=== PATIENT | female | born 1950 ===

== ENCOUNTER 2023-03-19 07:54 | Emergency (ER) | payer MEDICARE, OTHER ==
[2023-03-19] MEDS ORDERED: Ondansetron 4 MG Tab.DIS PO ONE (08:26)
[2023-03-19] MEDS ORDERED: Meclizine 25 MG Tab PO ONE (08:27)
[2023-03-19 09:40] LABS: BASOPHILS ABSOLUTE AUTO 0.1 K/mm3 (0.0-0.2); BASOPHILS PERCENT AUTO 0.8 % (0.0-1.0); EOSINOPHILS ABSOLUTE AUTO 0.1 K/mm3 (0.0-0.4); EOSINOPHILS PERCENT AUTO 1.7 % (0.0-6.0); HEMATOCRIT 37.9 % (37.0-47.0); HEMOGLOBIN 12.1 gm/dl (12.0-16.0); IMMATURE GRAN ABSOLUTE AUTO 0.02 K/mm3 (0.00-0.05); IMMATURE GRAN PERCENT AUTO 0.3 % (0.0-0.4); LYMPHOCYTES ABSOLUTE AUTO 1.2 K/mm3 (1.0-4.8); LYMPHOCYTES PERCENT AUTO 15.9 % (24.0-44.0); MEAN CORPUSCULAR HEMOGLOBIN 28.9 pg (28.0-32.0); MEAN CORPUSCULAR HGB CONC 31.9 g/dl (32.0-36.0); MEAN CORPUSCULAR VOLUME 90.5 fl (83.0-99.0); MEAN PLATELET VOLUME 8.5 fl (9.4-12.3); MONOCYTES ABSOLUTE AUTO 0.6 K/mm3 (0.0-0.8); MONOCYTES PERCENT AUTO 7.7 % (0.0-8.0); NEUTROPHILS ABSOLUTE AUTO 5.5 K/mm3 (1.8-7.7); NEUTROPHILS PERCENT AUTO 73.6 % (41.0-71.0); PLATELET COUNT,PLT 214 K/mm3 (150-400); RED BLOOD CELL COUNT 4.19 M/mm3 (4.10-5.30); WHITE BLOOD CELL COUNT,WBC 7.49 K/mm3 (3.9-11.3)
[2023-03-19 10:06] LABS: A/G RATIO 0.7 (1-2); ALBUMIN 3.5 g/dl (3.4-5.0); ANION GAP 13.2 (5-15); BILIRUBIN TOTAL 0.3 mg/dL (0.2-1.0); BUN/CREATININE RATIO 38.8 (14-18); CALCIUM 8.8 mg/dL (8.5-10.1); CREATININE 0.8 mg/dL (0.55-1.02); EST CRCL DRUG DOSING (CG) 51.81 mL/min; POTASSIUM,K 4.2 mEq/L (3.5-5.1); PROTEIN TOTAL,TP 8.4 g/dl (6.4-8.2)
[2023-03-19 10:47] VITALS: BP 171/71; PULSE 88
== END 2023-03-19 11:00 | disposition home or self-care (01) ==
LOC: JD.ED 07:54
DX: R42 Dizziness and giddiness (principal); I10 Essential (primary) hypertension; K21.9 Gastro-esophageal reflux disease without esophagitis; E78.00 Pure hypercholesterolemia, unspecified; Z88.0 Allergy status to penicillin; Z88.2 Allergy status to sulfonamides; Z88.8 Allergy status to other drugs, medicaments and biological substances; Z79.899 Other long term (current) drug therapy; Z79.84 Long term (current) use of oral hypoglycemic drugs; Z79.2 Long term (current) use of antibiotics
CPT/HCPCS: 36415; 70450; 80053; 83735; 84484; 85025; 93005; 99284; A9270; 93010

== ENCOUNTER 2024-05-05 06:45 | Emergency (ER) | payer MEDICARE, OTHER ==
[2024-05-05] MEDS ORDERED: Sodium Chloride 0.9% 10 ML Syringe FLUSH PRN (07:23)
[2024-05-05 07:37] LABS: BASOPHILS ABSOLUTE AUTO 0.1 K/mm3 (0.0-0.2); BASOPHILS PERCENT AUTO 0.9 % (0.0-1.0); EOSINOPHILS ABSOLUTE AUTO 0.1 K/mm3 (0.0-0.4); HEMATOCRIT 41.8 % (37.0-47.0); HEMOGLOBIN 13.5 gm/dl (12.0-16.0); IMMATURE GRAN ABSOLUTE AUTO 0.01 K/mm3 (0.00-0.05); IMMATURE GRAN PERCENT AUTO 0.2 % (0.0-0.4); LYMPHOCYTES ABSOLUTE AUTO 1.6 K/mm3 (1.0-4.8); MEAN CORPUSCULAR HGB CONC 32.3 g/dl (32.0-36.0); MEAN CORPUSCULAR VOLUME 89.7 fl (83.0-99.0); MEAN PLATELET VOLUME 8.7 fl (9.4-12.3); MONOCYTES ABSOLUTE AUTO 0.4 K/mm3 (0.0-0.8); MONOCYTES PERCENT AUTO 7.8 % (0.0-8.0); NEUTROPHILS ABSOLUTE AUTO 3.2 K/mm3 (1.8-7.7); NEUTROPHILS PERCENT AUTO 59.1 % (41.0-71.0); PLATELET COUNT,PLT 209 K/mm3 (150-400); RED BLOOD CELL COUNT 4.66 M/mm3 (4.10-5.30)
[2024-05-05 07:50] LABS: A/G RATIO 0.9 (1-2); ALBUMIN 3.7 g/dl (3.4-5.0); ANION GAP 11.8 (5-15); BILIRUBIN TOTAL 0.3 mg/dL (0.2-1.0); CALCIUM 9.5 mg/dL (8.5-10.1); EST CRCL DRUG DOSING (CG) 37.24 mL/min; POTASSIUM,K 3.8 mEq/L (3.5-5.1); PROTEIN TOTAL,TP 7.9 g/dl (6.4-8.2)
[2024-05-05 12:34] VITALS: BP 131/80; PULSE 88
== END 2024-05-05 12:27 | disposition home or self-care (01) ==
LOC: JD.ED 06:45
DX: R07.9 Chest pain, unspecified (principal); I10 Essential (primary) hypertension; E11.9 Type 2 diabetes mellitus without complications; Z88.1 Allergy status to other antibiotic agents; Z88.2 Allergy status to sulfonamides; Z88.8 Allergy status to other drugs, medicaments and biological substances; Z79.899 Other long term (current) drug therapy
CPT/HCPCS: 36415; 71045; 71045-26; 80053; 84484; 85025; 93005; 93010; 99284; 99285